=== PATIENT | female | born 1930 | race Caucasian/White ===

== ENCOUNTER 2017-03-13 14:31 | Emergency (ER) | payer MEDICARE, MEDICAID ==
[2017-03-13 15:16] VITALS: BP 128/73
--- NOTE | 2017-03-13 18:26 | EDM.PDOC ---
ED HPI GENERAL MEDICAL PROBLEM - General Chief Complaint: Lower Extremity Injury/Pain Stated Complaint: KNEE PAIN DUE TO FLUID ON KNEE Time Seen by Provider: 03/13/17 17:30 Source of Information: Reports: Patient, Family (daughter) History Limitations: Reports: No Limitations - History of Present Illness INITIAL COMMENTS - FREE TEXT/NARRATIVE: 87-year-old female presents to the ED at the request of walk-in clinic from [facility]. Patient attended the clinic today due to acute onset of severe pain in her right knee to the point that she was not able to weight-bear. When she went to bed she was feeling fine and pain developed overnight. Patient has a history of gout and has had gout involving the the the same knee at least twice in the past. She was running a low-grade fever and concern arose by the provider that she may in fact have a septic joint and therefore referred her to the ED. Patient has no systemic signs of illness other than a fever of 100. She states severe pain in her right knee limits her mobility similar to what she's experienced in the past with gout attacks. She admits to eating a lot more red meats over the last few days then she would normally. She has osteoarthritis in both knees as well. No recent surgical problems and she is also on antithrombotic agent Xarelto . Temperature 90 department is 37.7. Patient otherwise feels well with good appetite Onset: Sudden (Symptoms came on overnight yesterday.) Onset Date: 03/12/17 Duration: Hour(s): Location: Reports: Lower Extremity, Right (Right knee) Quality: Reports: Ache, Sharp, Stabbing, Throbbing Severity: Severe Improves with: Reports: None (Hardly weight-bear due to the severe pain) Worsens with: Reports: Movement Context: Reports: Other (Spontaneous occurrence of right knee pain that occurred overnight while she was sleeping). Denies: Activity (Nonweightbearing) , Exercise, Lifting, Sick Contact, Trauma Associated Symptoms: Reports: Other (Low-grade fever 37.7 appreciated by) Treatments RECEPTIONIST: Reports: Acetaminophen Right Knee Pain Score (Numeric/FACES): 8 - Related Data Allergies Allergy/AdvReac Type Severity Reaction Status Date / Time No Known Allergies Allergy Verified 03/13/17 14:44 Home Meds: Home Meds Digoxin 1 tab PO DAILY 03/10/16 [History] Rivaroxaban [Xarelto] 1 tab PO DAILY 03/10/16 [History] Colchicine 0.6 mg PO Q1H #3 capsule 03/13/17 [Rx] Diltiazem [Cardizem CD] 240 mg PO DAILY 03/13/17 [History] Nitroglycerin [Nitrostat] 0.4 mg SL ASDIRECTED 03/13/17 [History] Prednisone [IJD: predniSONE] 20 mg PO ASDIRECTED #15 tab 03/13/17 [Rx] atorvaSTATin [Lipitor] 20 mg PO DAILY 03/13/17 [History] oxyCODONE HCl/Acetaminophen [Percocet 5-325 mg Tablet] 1 - 2 each PO Q4H PRN # 15 tablet 03/13/17 [Rx] Past Medical History HEENT History: Reports: Impaired Vision Other HEENT History: glasses Cardiovascular History: Reports: Afib (on Digoxin for rate control and Xarelto.) , Arrhythmia, Hypertension, [place] Musculoskeletal History: Reports: Arthritis, Gout Neurological History: Reports: CVA Oncologic (Cancer) History: Reports: Colon Social & Family History - Family History Family Medical History: Noncontributory - Tobacco Use Smoking Status *Q: Never Smoker - Caffeine Use Caffeine Use: Reports: Coffee - Recreational Drug Use Recreational Drug Use: No - Living Situation & Occupation Living situation: Reports: , with Spouse Occupation: Retired Review of Systems - Review of Systems Review Of Systems: See Below Constitutional: Reports: Fever (Low-grade fever appreciated by) Eyes: Reports: No Symptoms, Other Ears: Reports: No Symptoms (Wears eyeglasses.) Nose: Reports: No Symptoms Mouth/Throat: Reports: No Symptoms Respiratory: Reports: Shortness of Breath Cardiovascular: Reports: Irregular Heart Rate (Chronic atrial fibrillation) GI/Abdominal: Reports: Other Genitourinary: Reports: Incontinence (Occasional problems with constipation both stress and urge components) Musculoskeletal: Reports: Joint Pain (Arthritis knees hips low back and neck.) Skin: Reports: Bruising (Bruises easily because she is on Xarelto.) Neurological: Reports: No Symptoms Psychiatric: Reports: No Symptoms ED EXAM, GENERAL - Physical Exam Exam: See Below Exam Limited By: No Limitations General Appearance: Alert, WD/WN, Anxious, Mild Distress Respiratory/Chest: No Respiratory Distress, Lungs Clear, Normal Breath Sounds, Chest Non-Tender Peripheral Pulses: 1+: Posterior Tibial (L), Posterior Tibial (R), Dorsalis Pedis (L), Dorsalis Pedis (R) Extremities: Other (Examination of both knees was carried out. Both are swollen more so than the left. There is a true joint effusion in the right side which is tender on both lateral and medial aspects. There is no significant erythema of the area. There is increased warmth of both knees. She does have decreased range of motion in the right knee with loss of 30 of flexion but does have full extension which actually makes the pain worse.) Psychiatric: Normal Affect, Normal Mood Skin Exam: Warm, Normal Color, No Rash Course - Vital Signs Last Recorded V/S: Last Vital Signs Temp 38.3 C H 03/13/17 15:16 Pulse 71 03/13/17 15:16 Resp 14 03/13/17 15:16 BP 128/73 03/13/17 15:16 Pulse Ox 96 03/13/17 15:16 - Radiology Interpretation Free Text/Narrative:: 87-year-old female presents the ED with sudden onset of severe pain in her right knee that came on overnight while she was asleep. She has a history of gouty arthritis with it involving her knees in the past. She was seen by provider at [facility] who was concerned that she had a low-grade fever and therefore sent across for possible aspiration to rule out a septic joint. Patient has a low-grade temperature 37.7 which she was not aware of. Pain is bad enough in her knee that she cannot weight-bear. She reports it's very similar to what she has experienced in the past with acute gout. On examination clinically she has acute gouty arthritis of her right knee. She'll be treated with colchicine 0.6 mg tablet every hourly 3 doses. Because she is on Xarrelto she cannot take anti-inflammatories. If she'll therefore should be placed on prednisone 20 mg twice a day for 5 days and then once in the morning for another 4 days with first tablet to be taken tonight. Percocet 5/325 milligram tablets 15 were provided for pain relief. She has a walker at home and a who can watch her so that she does not fall patient is to expect 80% improvement in the next 48 hours otherwise she needs to be reviewed again. I did not feel that the benefits outweighed the risks of aspiration of her knee at this time since she is on Xarelto and I'm fairly confident by history that she's developed acute gouty arthritis which can cause a low-grade fever and indeed a leukocytosis. She does need to have her uric acid checked at some point in time and consideration of suppressive medication entertained to prevent gout from occurring . Hyperuricemia may also be causing an interstitial nephritis as well. Departure - Departure Time of Disposition: 18:21 Disposition: Home, Self-Care 01 Condition: Fair Clinical Impression: Gout attack Qualifiers: Gout site: knee Gout etiology: unspecified cause Laterality: right Qualified Code(s): M10.9 - Gout, unspecified - Discharge Information Prescriptions: Colchicine 0.6 mg PO Q1H #3 capsule oxyCODONE HCl/Acetaminophen [Percocet 5-325 mg Tablet] 1 - 2 each PO Q4H PRN # 15 tablet PRN Reason: pain relief. Prednisone [IJD: predniSONE] 20 mg PO ASDIRECTED #15 tab Instructions: Gout Referrals: Deepak Norris MD [Primary Care Provider] - Forms: ED Department Discharge Additional Instructions: Evaluation the emergency room today in regards to acute onset of severe pain right knee overnight 2 nights ago. History of gout affecting the knees in the past. Gout can indeed cause an elevation of your white blood cell count and a fever. I therefore feel after examination that you are suffering an acute gout attack of the right knee and I do not feel that further investigations and in particular arthrocentesis of the right knee joint to remove fluid is indicated at this time. You're on a blood thinner that may make this more difficult and potentially hazardous. Treatment will be for acute gout attack. He was colchicine 0.6 mg one tablet every hour for 3 consecutive hours tonight. Use prednisone 20 mg tonight and then 11 tablet with breakfast and supper for 5 days then 1 tablet in the morning only for another 4 days as instructed on the bottle. This will reduce the pain and inflammation in the joint. Pain pill Percocet 5/3/25 milligrams one or 2 every 4-6 hours as needed for pain relief until the anti-inflammatories are working well which is usually 2 days. Expect 80-90% improvement in pain over the next 48 hours. If not need to return to the ED.
== END 2017-03-13 18:30 | disposition home or self-care (01) ==
LOC: JD.ED 14:31
DX: M10.9 Gout, unspecified (principal); Z79.899 Other long term (current) drug therapy
CPT/HCPCS: 99283

== ENCOUNTER 2018-04-20 11:11 | Emergency (ER) | payer MEDICARE, MEDICAID ==
[2018-04-20 11:25] VITALS: BP 134/91
--- NOTE | 2018-04-20 11:40 | EDM.PDOC ---
ED HPI GENERAL MEDICAL PROBLEM - General Chief Complaint: Upper Extremity Injury/Pain Stated Complaint: CANNOT LIFT R ARM Time Seen by Provider: 04/20/18 11:25 Source of Information: Reports: Patient History Limitations: Reports: No Limitations - History of Present Illness INITIAL COMMENTS - FREE TEXT/NARRATIVE: Patient is a 88-year-old female presents ED complaining of right lateral elbow pain with pain radiating down her right arm and into her hand and into her fingers. She has some numbness and tingling to the tip of her fingers with inability to close her hand all the way due to the pain. Pain is worsen with supination/pronation of the palm and also flexion and extension of the elbow. There has been no recent fall. Pain to the right elbow started yesterday with no known precipitating factors. 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 She has increasing pain with opening and closing her hand. Pain is constant at the lateral aspect of the right elbow. Patient is concerned this may related to gout to which she has a history of gout to the left knee 2. The right elbow is not swollen nor warm to touch. She states she is not able to lift her arm at the shoulder due to worsening pain to the right lateral elbow. She denies any history of strokes, neck pain headache, vision changes, weakness to the right lower extremity, pain to the right shoulder/upper arm/chest/abdomen, shortness of breath, nausea vomiting, or any additional complaints. Right Elbow Pain Score (Numeric/FACES): 8 - Related Data Allergies Allergy/AdvReac Type Severity Reaction Status Date / Time No Known Allergies Allergy Verified 04/20/18 11:24 Home Meds: Home Meds Digoxin 0.125 mg PO DAILY 03/10/16 [History] Rivaroxaban [Xarelto] 1 tab PO DAILY 03/10/16 [History] Diltiazem [Cardizem CD] 240 mg PO DAILY 03/13/17 [History] Nitroglycerin [Nitrostat] 0.4 mg SL ASDIRECTED 03/13/17 [History] atorvaSTATin [Lipitor] 20 mg PO ASDIRECTED 03/13/17 [History] Past Medical History HEENT History: Reports: Impaired Vision Other HEENT History: glasses Cardiovascular History: Reports: Afib (on Digoxin for rate control and Xarelto.) , Arrhythmia, Hypertension, [place] Musculoskeletal History: Reports: Arthritis, Gout Neurological History: Reports: CVA Oncologic (Cancer) History: Reports: Colon Social & Family History - Family History Family Medical History: Noncontributory - Caffeine Use Caffeine Use: Reports: Coffee - Living Situation & Occupation Living situation: Reports: , with Spouse Occupation: Retired Review of Systems - Review of Systems Review Of Systems: ROS reveals no pertinent complaints other than HPI. ED EXAM, GENERAL - Physical Exam Exam: See Below Exam Limited By: No Limitations General Appearance: Alert, WD/WN, No Apparent Distress Ears: Hearing Grossly Normal Nose: Normal Inspection Throat/Mouth: Normal Voice, No Airway Compromise Head: Atraumatic, Normocephalic Neck: Normal Inspection, Supple Respiratory/Chest: No Respiratory Distress, Lungs Clear, Normal Breath Sounds, No Accessory Muscle Use Cardiovascular: Normal Peripheral Pulses, Regular Rate, Rhythm, No Murmur Peripheral Pulses: 2+: Radial (L), Radial (R) GI/Abdominal: Normal Bowel Sounds, Soft, Non-Tender Back Exam: Normal Inspection Extremities: Normal Inspection, Normal Capillary Refill, Other (Patient on examination the right elbow does not elicit any findings of increased swelling, bruising, redness, or increased with palpation. Pain is along the lateral aspect of the elbow along the radial head increased with pinpoint tenderness. With flexion and extension of the elbow pain is isolated to the right lateral aspect of the elbow. With supination and pronation of the palm pain radiates from the lateral aspect into her hand. She does have some decreased sensation to her tips of her fingers. Her clinical laboratory technician is slightly weaker than her left. With evaluating the nerves patient is able to abduct her fingers against resistance suggesting ulnar nerves in place. In addition with pinching her index finger and thumb together there is no weakness noted with attempting to break apart in comparison the left suggesting median nerves noninvolved. With her form and the hitchhikers thumb there is some decreased strength noted with testing in comparison to the left and extension. She does have some pain noted that radiates to her lateral aspect of her elbow when doing so. patient is able to flex and extend at the elbow although is limited with worsening pain to the lateral aspect of the elbow. She is able to flex and extend her wrist although this is limited as well with increasing pain noted.There is no swelling noted to the right elbow, forearm, wrist, hand, or fingers. Any type of movement causes discomfort.) Neurological: Alert, Oriented, CN II-XII Intact, Normal Cognition, No Motor/ Sensory Deficits, Other Psychiatric: Normal Affect, Normal Mood Skin Exam: Warm, Dry, Intact, Normal Color, No Rash Front/Back Body Diagram: 1 - No facial droop, no slurred speech, no pronator drift. No weakness discrepancy to the lower extremities noted with testing. Right clinical laboratory technician is slightly weaker than the left with testing 2nd to pain with closing hand. FInger to nose and rapid alternating movements are intact. She has no gait abnormalities. Course - Vital Signs Last Recorded V/S: Last Vital Signs Temp 98.4 F 04/20/18 11:18 Pulse 92 04/20/18 11:18 Resp 13 04/20/18 11:18 BP 134/91 H 04/20/18 11:18 Pulse Ox 100 04/20/18 11:18 - Orders/Labs/Meds Labs: Laboratory Tests 04/20/18 04/20/18 Range/Units 11:40 11:40 WBC 8.27 (3.98-10.04) K/mm3 RBC 4.30 (3.98-5.22) M/mm3 Hgb 12.1 (11.2-15.7) gm/L Hct 37.9 (34.1-44.9) % MCV 88.1 (79.4-94.8) fl MCH 28.1 (25.6-32.2) pg MCHC 31.9 L (32.2-35.5) g/dl RDW Std Deviation 43.3 (36.4-46.3) fL Plt Count 228 (182-369) K/mm3 MPV 8.7 L (9.4-12.3) fl Neutrophils % (Manual) 81 H (40-60) % Band Neutrophils % 0 (0-10) % Lymphocytes % (Manual) 8 L (20-40) % Atypical Lymphs % 0 % Monocytes % (Manual) 5 (2-10) % Eosinophils % (Manual) 6 H (0.7-5.8) % Basophils % (Manual) 0 L (0.1-1.2) Platelet Estimate Adequate Anisocytosis 1+ slight RBC Morph Comment Abnormal Sodium 143 (136-145) mEq/L Potassium 3.9 (3.5-5.1) mEq/L Chloride 105 (98-107) mEq/L Carbon Dioxide 25 (21-32) mEq/L Anion Gap 16.9 H (5-15) BUN 11 (7-18) mg/dL Creatinine 0.7 (0.55-1.02) mg/dL Est Cr Clr Drug Dosing 53.01 mL/min Estimated GFR (MDRD) > 60 (>60) mL/min BUN/Creatinine Ratio 15.7 (14-18) Glucose 126 H (83-115) mg/dL Uric Acid 4.9 (2.6-6.0) mg/dL Calcium 9.1 (8.5-10.1) mg/dL Total Bilirubin 1.8 H (0.2-1.0) mg/dL AST 16 (15-37) U/L ALT 17 (14-59) U/L Alkaline Phosphatase 89 (46-116) U/L C-Reactive Protein 5.3 H* (<1.0) mg/dL Total Protein 7.1 (6.4-8.2) g/dl Albumin 3.4 (3.4-5.0) g/dl Globulin 3.7 gm/dL Albumin/Globulin Ratio 0.9 L (1-2) Meds: Medications Discontinued Medications Generic Name Dose Route Start Last Admin Trade Name Freq PRN Reason Stop Dose Admin Hydrocodone Bitart/Acetaminophen 1 tab 04/20/18 13:22 04/20/18 13:47 [place] 325-5 Mg PO 04/20/18 13:23 1 tab ONETIME ONE Administration - Re-Assessments/Exams Free Text/Narrative Re-Assessment/Exam: Patient has no facial droop, slurred speech, vision changes, weakness to the right lower extremity, pronator drift with no history of stroke in the past. She has pinpoint tenderness along the lateral aspect of the elbow suggesting lateral epicondylitis with increasing pain with flexion and extension of the elbow with pronation and supination of the palm. In addition pain does radiate distally. She has discomfort noted with placing her thumb and the itchhiker position with some decreased strength noted with extension against resistance. No wrist drop. In addition her cooperage shop supervisor strength in Comparison to the left is decreased as well. She does have some numbness and feeling to her fingers but is able to feel me touch her fingers. In addition she does not recall any specific injury that may have caused this thus muscle strain, contusion or fracture unlikely. I did discuss the patient with Dr. Briones. He agrees this most likely is not a stroke. Cause is most likely inflammatory such as lateral epicondylitis with radiation of discomfort distally. Does not recommend obtaining a CT of the head. I will obtain basic labs including CBC, chem 14, CRP, uric acid. In addition x- ray of the right elbow will be obtained since is the point of maximal pain with palpation. CBC and chemistry panel did not reveal any concerning findings. CRP elevated at 5. X-ray of the right elbow reviewed with Dr. Briones with no concerning findings. Final interpretations pending. URIC acid WNL. 04/20/18 13:15 Discussed results of recent labs and x-ray with the patient and family member. We are still waiting on uric acid level. Furthermore, with compression of the lateral aspect of the right elbow along the lateral epicondylitis just distally pain diminishes to the right lateral elbow. Patient continues to have some discomfort to the right wrist along the anatomical snuffbox and dorsal aspect. Initially pain was radiating down from the elbow on initial report. Now the pain is persistent. With that said Will go ahead and get x-ray of the right wrist ensure that there is no fractures depression. In addition further history obtained patient now admits that there was a history of a stroke in the past with no residual effects. She does not know what side it was on. I discussed with the family and patient that this is most likely not related to a stroke. I have offered to obtain a CT of the head to ensure there is not a hemorrhagic stroke or findings for new stroke present. Patient has refused. X-ray of the right wrist will be obtained. 04/20/18 14:20 X-ray of the right wrist revealed no fractures. Reviewed with Dr. Briones. Suspect patient has strained a muscle with exercises she performs and with helping . Lateral epicondylitis is of concern as well. 04/22/18 16:17 x-ray of the right wrist impression: Degenerative change osteoporosis anvascular calcification. Possible nondisplaced fracture involving the base of the radial styloid process. 1122 today I informed the patient of the x-ray findings. I have offered to splint the affected extremity this would require patient to be transported to the emergency department. Patient states today her symptoms are improvingwith therapy that she is performing at home. she refuses any splinting at this point. She will see her PCPin the next few days when warms up. she would benefit from PT referral. Patient states she is doing okay and is thankful that I called her.I have informed the patient to return to the emergency department if she develops any new or worsening symptoms. Departure - Departure Time of Disposition: 14:21 Disposition: Home, Self-Care 01 Condition: Good Clinical Impression: Wrist pain, right Lateral epicondylitis of elbow Qualifiers: Laterality: right Qualified Code(s): M77.11 - Lateral epicondylitis, right elbow - Discharge Information Instructions: Tendinitis, [id number], Wrist Pain, Adult, Joint Pain, Easy-to- Read Referrals: Deepak Norris MD [Primary Care Provider] - Forms: ED Department Discharge Additional Instructions: Please refrain from any activities that cause worsening discomfort. May apply ice and heat in alternating fashion to the affected area as needed throughout the course of the day. Utilize Tylenol for pain. May utilize a topical pain ointment such as Biofreeze. Follow-up with PCP if symptoms persist. Please return back to ED if you develop any new or worsening symptoms.
[2018-04-20] MEDS ORDERED: Acetaminophen/HYDROcodone 325-5 MG Tab PO ONE (13:22)
--- NOTE | 2018-04-21 18:27 | CR ---
Right wrist: Four views of the right wrist were obtained. Comparison: No prior right wrist exam. Severe joint space narrowing is noted off the distal navicular bone and within the CMC joint of the thumb. Bony structures are osteoporotic. Lucent line is identified at the base of the radial styloid process suspicious for a nondisplaced fracture. Vascular calcification is noted. Impression: 1. Degenerative change osteoporosis and vascular calcification. 2. Possible nondisplaced fracture involving the base of the radial styloid process. Diagnostic code #3
--- NOTE | 2018-04-21 18:27 | CR ---
Right elbow: Four views of the right elbow were obtained. Comparison: No previous elbow study. Joint spaces are preserved. No joint effusion is seen. No fracture or other bony abnormality is identified. Impression: 1. No abnormality is appreciated on right elbow exam. Diagnostic code #1
== END 2018-04-20 14:40 | disposition home or self-care (01) ==
LOC: JD.ED 11:11
DX: M77.11 Lateral epicondylitis, right elbow (principal); M25.531 Pain in right wrist; I48.91 Unspecified atrial fibrillation; Z86.73 Personal history of transient ischemic attack (TIA), and cerebral infarction without residual deficits; Z79.899 Other long term (current) drug therapy
CPT/HCPCS: 36415; 73080; 73110; 80053; 84550; 85007; 85027; 86140; 99284; A9270

== ENCOUNTER 2019-05-04 09:44 | Emergency (ER) | payer MEDICARE, MEDICAID, SELFPAY ==
[2019-05-04] MEDS ORDERED: predniSONE 20 MG Tab PO ONE (10:04)
[2019-05-04] MEDS ORDERED: Acetaminophen/oxyCODONE 325-5 MG Tab PO ONE (10:05)
[2019-05-04] MEDS ORDERED: Ondansetron 4 MG Tab.DIS PO ONE (10:06)
--- NOTE | 2019-05-04 10:06 | EDM.PDOC ---
ED HPI GENERAL MEDICAL PROBLEM - General Chief Complaint: Upper Extremity Injury/Pain Stated Complaint: GOUT IN HAND Time Seen by Provider: 05/04/19 09:54 Source of Information: Reports: Patient, Family History Limitations: Reports: No Limitations (Daughter) - History of Present Illness INITIAL COMMENTS - FREE TEXT/NARRATIVE: 89-year-old female attends the ED with acute onset of severe pain and swelling and redness of her right wrist and hand. She has had gout attack in the hand in the past. She felt it coming on yesterday but it became severe overnight and this morning she is unable to use the hand at all. She has underlying degenerative rheumatoid arthritis. Is on allopurinol 100 mg daily. She states she's been taking this regularly. Unfortunately she is also on Xarelto her chronic atrial fibrillation and is therefore not a candidate for NSAIDs. Onset: Gradual Onset Date: 05/03/19 Onset Time: 15:00 Duration: Hour(s): ([place] the pain coming on yesterday but became severe overnight.), Getting Worse Location: Reports: Upper Extremity, Right (Right wrist and hand particularly the first MTP joint) Quality: Reports: Ache, Throbbing Severity: Moderate Improves with: Reports: None (Dated at 10) Worsens with: Reports: Movement Context: Reports: Other (Spontaneous recurrence of gout attack.). Denies: Activity, Exercise, Lifting, Sick Contact, Trauma Associated Symptoms: Reports: No Other Symptoms Treatments SURGICAL ASST: Reports: Acetaminophen, Other (see below) (Try tramadol at home as well with no relief.) Right Hand Pain Score (Numeric/FACES): 10 - Related Data Allergies Allergy/AdvReac Type Severity Reaction Status Date / Time No Known Allergies Allergy Verified 05/04/19 09:59 Home Meds: Home Meds Digoxin 0.125 mg PO DAILY 03/10/16 [History] Rivaroxaban [Xarelto] 1 tab PO DAILY 03/10/16 [History] Diltiazem [Cardizem CD] 240 mg PO DAILY 03/13/17 [History] Nitroglycerin [Nitrostat] 0.4 mg SL ASDIRECTED PRN 03/13/17 [History] atorvaSTATin [Lipitor] 20 mg PO ASDIRECTED 03/13/17 [History] Aspirin 81 mg PO DAILY 02/08/19 [History] Multivitamin [Daily Multiple Vitamin] 1 each PO DAILY 02/08/19 [History] Allopurinol [Zyloprim] 100 mg PO DAILY 05/04/19 [History] oxyCODONE HCl/Acetaminophen [Percocet 5-325 mg Tablet] 1 each PO Q4H PRN #16 tablet 05/04/19 [Rx] predniSONE [Prednisone] 20 mg PO BID #12 tablet 05/04/19 [Rx] Past Medical History HEENT History: Reports: Impaired Vision Other HEENT History: glasses Cardiovascular History: Reports: Afib (On Xarelto), Arrhythmia, Hypertension, CA Respiratory History: Reports: None Genitourinary History: Reports: Urinary Incontinence [employer] History: Reports: None Musculoskeletal History: Reports: Arthritis, Gout Neurological History: Reports: CVA Psychiatric History: Reports: None Endocrine/Metabolic History: Reports: None Hematologic History: Reports: Anticoagulation Therapy Immunologic History: Reports: None Oncologic (Cancer) History: Reports: Colon Dermatologic History: Reports: None - Infectious Disease History Infectious Disease History: Reports: None - Past Surgical History GI Surgical History: Reports: Cholecystectomy, Colon, Colonoscopy Social & Family History - Family History Family Medical History: Noncontributory - Caffeine Use Caffeine Use: Reports: Coffee - Living Situation & Occupation Living situation: Reports: , with Spouse Occupation: Retired Review of Systems - Review of Systems Review Of Systems: See Below Constitutional: Reports: No Symptoms Eyes: Reports: No Symptoms Ears: Reports: No Symptoms Nose: Reports: No Symptoms Mouth/Throat: Reports: No Symptoms Respiratory: Reports: Shortness of Breath. Denies: Wheezing, Pleuritic Chest Pain (On occasion.), Cough Cardiovascular: Reports: Irregular Heart Rate (Is in chronic atrial fibrillation.), Palpitations. Denies: No Symptoms, Chest Pain, Edema GI/Abdominal: Reports: Other (Occasional problems with constipation) Genitourinary: Reports: Incontinence, Other (Both urge and stress components.) Musculoskeletal: Reports: Neck Pain (Arthritis in her lower back and neck.), Back Pain, Joint Pain ( A frequency. she has rheumatoid arthritis involving her knees and hands elbows shoulders and feet.) Skin: Reports: Bruising (Bruises easily as she is on Xarelto) Neurological: Reports: No Symptoms Psychiatric: Reports: No Symptoms ED EXAM, GENERAL - Physical Exam Exam: See Below Exam Limited By: No Limitations General Appearance: Alert, WD/WN, Moderate Distress, Other (And a good deal of pain. Temperature is 36.4 heart rate was 58 and irregularly irregular compatible with atrial fibrillation. Respiratory 16 BP slightly low at 9279. Pulse ox 95% on room air.) Eye Exam: Bilateral Eye: Normal Inspection Throat/Mouth: Normal Inspection, Normal Lips, Normal Oropharynx Head: Atraumatic, Normocephalic Neck: Normal Inspection, Limited Range of Motion, Tender Lateral (With crepitus on lateral rotation.). No: Lymphadenopathy (L), Lymphadenopathy (R) Respiratory/Chest: No Respiratory Distress, Lungs Clear, Normal Breath Sounds, No Accessory Muscle Use Cardiovascular: No Edema, No Gallop (Compatible with atrial fibrillation.), No Rub, Irregularly Irregular GI/Abdominal: Normal Bowel Sounds, Soft, Non-Tender, No Organomegaly, No Abnormal Bruit, No Mass, Pelvis Stable Extremities: Other (Inspection of the right hand shows marked erythema of the entire wrist particularly in the medial aspect as well as the first MCP joint of the right hand. No adduction and abduction flexion or extension at the wrist due to severe pain. Is very warm to palpation as compared to the left. Degenerative changes of arthritis in the right wrist) Neurological: Alert (.), Oriented, CN II-XII Intact, Normal Cognition Psychiatric: Normal Affect, Normal Mood Skin Exam: Warm, Dry, Intact, Normal Color, Erythema, Increased Warmth (Left wrist.) Course - Vital Signs Last Recorded V/S: Last Vital Signs Temp 36.4 C 05/04/19 10:03 Pulse 58 L 05/04/19 10:03 Resp 16 05/04/19 10:03 BP 92/79 05/04/19 10:03 Pulse Ox 95 05/04/19 10:03 - Orders/Labs/Meds Orders: Active Orders 24 hr Category Date Time Status Colchicine [Colcrys] Med 05/04/19 10:15 Active 0.6 mg PO Q1H Medication Orders Colchicine (Colcrys) 0.6 mg PO Q1H MANUEL Stop: 05/04/19 12:16 Last Admin: 05/04/19 10:10 Dose: 0.6 mg Meds: Medications Generic Name Dose Route Start Last Admin Trade Name Freq PRN Reason Stop Dose Admin Colchicine 0.6 mg 05/04/19 10:15 02/16/20 10:10 Colcrys PO 05/04/19 12:16 0.6 mg Q1H MANUEL Administration Discontinued Medications Generic Name Dose Route Start Last Admin Trade Name Fabby PRN Reason Stop Dose Admin Ondansetron HCl 4 mg 05/04/19 10:06 05/04/19 10:10 Zofran Odt PO 05/04/19 10:07 4 mg ONETIME ONE Administration Oxycodone/Acetaminophen 1 tab 05/04/19 10:05 05/04/19 10:10 Percocet 325-5 Mg PO 05/04/19 10:06 1 tab ONETIME ONE Administration Prednisone 20 mg 05/04/19 10:04 05/04/19 10:10 Prednisone PO 05/04/19 10:05 20 mg ONETIME ONE Administration - Radiology Interpretation Free Text/Narrative:: 81-year-old female presents to the ED with acute onset of pain in her left wrist starting yesterday but worsening overnight. She has a history of gout and has had gout in this hand before. She has a history of degenerative arthritis as well as rheumatoid arthritis. Examination reveals increased swelling pain and inflammation with increased warmth over the carpal bones of her right hand and first MCP joint. Right hand dominant. Patient is on Xarelto chronically for atrial fibrillation and therefore is not a candidate for NSAIDs. She'll be treated with colchicine 0.6 mg by mouth once every hour for 3 consecutive hours. Prednisone 20 mg given in the ED and this will be used twice a day for the next 6 days as an anti-inflammatory. Percocet tabs 5/325 mg 1 given in the ED with Zofran 4 mg sublingually. Percocet tablets 16 were provided for home relief. She is on allopurinol 100 mg a day but is advised not to increase this until the gout is completely gone for 3 days. Advise follow-up with her personal care physician in 10 days' time. She should is expect marked improvement in gout relief right wrist and hand over the next 48 hours. Departure - Departure Time of Disposition: 10:22 Disposition: Home, Self-Care 01 Condition: Fair Clinical Impression: Wrist pain, right Gout attack Qualifiers: Gout site: ankle Gout etiology: unspecified cause Laterality: left Qualified Code(s): M10.9 - Gout, unspecified - Discharge Information *PRESCRIPTION DRUG MONITORING PROGRAM REVIEWED*: Not Applicable *COPY OF PRESCRIPTION DRUG MONITORING REPORT IN PATIENT VIKY: Not Applicable Prescriptions: oxyCODONE HCl/Acetaminophen [Percocet 5-325 mg Tablet] 1 each PO Q4H PRN #16 tablet PRN Reason: pain relief. predniSONE [Prednisone] 20 mg PO BID #12 tablet Instructions: Low-Purine Eating Plan, Gout Forms: ED Department Discharge Additional Instructions: Evaluation the emergency room this morning in regards to acute onset of severe pain and inflammation in the right wrist and hand secondary to recurrent gout attack. Treatment is to be colchicine tablet 0.6 mg one tablet every hour for 3 consecutive hours. First tablet was given in the ED at 10:15 this morning. Second tablet will be due at 11:15 and third tablet about quarter after 12 today. Use prednisone 20 mg twice daily for the next 6 days. First dose was provided in the ED. Next dose is due be due with suppertime tonight. Pain pill is Percocet tablet 5/325 mg one tablet every 4 hours as needed for pain relief until the anti-inflammatories become effective which is usually about a day and a half to 2 days. Follow-up with your personal care physician in about 10 days time to to decide whether or not you can tolerate an increase in your allopurinol dose to try and prevent gout from recurring. This depends a bit on how well your kidneys are functioning. Sepsis Event Note - Focused Exam Vital Signs: Vital Signs Temp Pulse Resp BP Pulse Ox 05/04/19 10:03 36.4 C 58 L 16 92/79 95 Date Exam was Performed: 05/04/19 Time Exam was Performed: 10:27 - My Orders Last 24 Hours: My Active Orders 05/04/19 10:15 Colchicine [Colcrys] 0.6 mg PO Q1H - Assessment/Plan Last 24 Hours: My Active Orders 05/04/19 10:15 Colchicine [Colcrys] 0.6 mg PO Q1H
[2019-05-04 10:07] VITALS: BP 92/79; PULSE 58
[2019-05-04] MEDS ORDERED: Colchicine 0.6 MG Tab PO SCH (10:15)
== END 2019-05-04 10:34 | disposition home or self-care (01) ==
LOC: JD.ED 09:44
DX: M10.9 Gout, unspecified (principal); I48.20 Chronic atrial fibrillation, unspecified; M06.9 Rheumatoid arthritis, unspecified; I10 Essential (primary) hypertension; I25.2 Old myocardial infarction; Z86.73 Personal history of transient ischemic attack (TIA), and cerebral infarction without residual deficits; Z79.01 Long term (current) use of anticoagulants; Z79.899 Other long term (current) drug therapy; Z79.82 Long term (current) use of aspirin; Z79.52 Long term (current) use of systemic steroids
CPT/HCPCS: 99283; A9270